=== PATIENT | female | born 1995 | race Two or more races ===

== ENCOUNTER 2018-12-08 19:10 | Emergency (ER) | payer SELFPAY ==
[~2018-12-08] VITALS: Ht 180.3 cm; Wt 74.8 kg
[2018-12-08 19:14] VITALS: BP 130/80
--- NOTE | 2018-12-08 19:14 | NUR ---
brought in by lapd and rescue with complaints patient is suicidal wants to . patinet has abration on neck ,right shoulder . lapd at bedside pateint is awake alert oriented .
--- NOTE | 2018-12-08 19:14 | NUR ---
ED Nurse Note: sitter at bedside
--- NOTE | 2018-12-08 19:20 | NUR ---
Pt Belongings in psych locker #2
[2018-12-08 20:31] LABS: ANION GAP 11 mmol/L (5-15); BLOOD UREA NITROGEN 9 mg/dL (7-18); CALCIUM 9.2 MG/DL (8.5-10.1); CARBON DIOXIDE 27 MMOL/L (21-32); CHLORIDE 106 MMOL/L (98-107); CREATININE 0.7 MG/DL (0.55-1.30); POTASSIUM 3.7 MMOL/L (3.5-5.1); SODIUM 144 MMOL/L (136-145)
[2018-12-08 20:33] LABS: BASOPHILS % (AUTO) 1.5 % (0.0-2.0); EOSINOPHILS % (AUTO) 2.9 % (0.0-3.0); HEMOGLOBIN 13.9 G/DL (12.0-16.0); LYMPHOCYTES % (AUTO) 34.4 % (20.0-45.0); MEAN CORPUSCULAR VOLUME 86 FL (80-99); MONOCYTES % (AUTO) 7.6 % (1.0-10.0); NEUTROPHILS % (AUTO) 53.5 % (45.0-75.0); PLATELET COUNT 227 K/UL (150-450); RED BLOOD COUNT 4.91 M/UL (4.20-5.40); RED CELL DISTRIBUTION WIDTH 13.1 % (11.6-14.8); WHITE BLOOD COUNT 6.5 K/UL (4.8-10.8)
--- NOTE | 2018-12-08 20:34 | Emergency Room Report ---
History of Present Illness General Chief Complaint: Behavioral Complaint Source: Patient (Isac Isidro) Present Illness HPI 23-year-old female with history of bipolar disorder currently not taking her medication here brought in by paramedics and [employer] due to attempting to cut her neck as well as her left shoulder and her abdomen. Multiple abrasions on the neck and left shoulder as well as the abdomen are noted. Patient reports that she has been severely depressed and has been having lack of sleep for the past few days. 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 Patient reports that she has tried to hurt herself in the past and has been under the care of the psychiatric facilities however has not seek any psychiatric attention in the few months. Patient reports that she has no one to live with as well as no family. Denies SI and HI today however says that this is just the thought that came to her head and she needs to go home to go back to work. Patient used a knife to cut herself. Patient has been having many impulsive moves in the past few days and reports that she has had 3-4 nights of no sleeping. Patient denies any visual or auditory hallucinations. Denies chest pain, shortness of breath, palpitation , abdominal pain, nausea vomiting, headache, dizziness and loss of consciousness. Patient reports that her menses are irregular. (Isac Isidro) Allergies: Coded Allergies: No Known Allergies (Unverified , 12/08/18) Patient History Past Medical History: see triage record Past Surgical History: unable to obtain Family History: none Now: No Immunizations: UTD Reviewed Nursing Documentation: PMH: Agreed; PSxH: Agreed (Isac Isidro) Nursing Documentation-PMH Hx Asthma: Yes (Isac Isidro) Review of Systems All Other Systems: negative except mentioned in HPI (Isac Isidro) Physical Exam Vital Signs Date Time Temp Pulse Resp B/P (MAP) Pulse Ox O2 Delivery O2 Flow Rate FiO2 12/08/18 19:14 98.4 130/80 (97) Room Air Sp02 EP Interpretation: reviewed, normal General Appearance: alert/responsive, GCS 15, non-toxic Head: normocephalic, atraumatic Eyes: normal eye exam, PERRL, EOMI, lids + conjunctiva normal, discs & fundi normal ENT: normal ENT inspection, TMs + canals normal, hearing intact Neck: normal inspection, supple/symm/no masses, thyroid normal Respiratory: normal inspection, effort normal, no rhonchi, no wheezing, no retractions Cardiovascular: normal inspection, regular rate, rhythm, no murmur, gallop, rub , no edema Gastrointestinal: normal inspection, non-tender, no mass, non-distended Musculoskeletal: normal inspection, gait & station normal, digits & nails normal Neurologic: normal inspection, CN II-XII intact, oriented x3 Psychiatric: memory normal, no delusions, other Skin: other - Multiple abrasions and cuts and bilateral neck, left shoulder, abdomen no sign of strangulation or deep cuts noted Lymphatic: normal inspection, normal cervical nodes, normal axillary nodes - Suicidal ideation and plan (Isac Isidro) Medical Decision Making PA Attestation All diagnoses and treatment plans were reviewed and discussed with my supervising physician Dr. Gillespie (Isac Isidro) Diagnostic Impression: Primary Impression: Suicidal behavior with attempted self-injury Additional Impression: UTI (urinary tract infection) ER Course 23-year-old female with history of bipolar disorder currently not taking her medication here brought in by paramedics and [employer] due to attempting to cut her neck as well as her left shoulder and her abdomen. Multiple abrasions on the neck and left shoulder as well as the abdomen are noted. Patient reports that she has been severely depressed and has been having lack of sleep for the past few days. 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 Patient reports that she has tried to hurt herself in the past and has been under the care of the psychiatric facilities however has not seek any psychiatric attention in the few months. Patient reports that she has no one to live with as well as no family. Denies SI and HI today however says that this is just the thought that came to her head and she needs to go home to go back to work. Patient used a knife to cut herself. Patient has been having many impulsive moves in the past few days and reports that she has had 3-4 nights of no sleeping. Patient denies any visual or auditory hallucinations. Denies chest pain, shortness of breath, palpitation , abdominal pain, nausea vomiting, headache, dizziness and loss of consciousness. Patient reports that her menses are irregular. Ddx considered but are not limited to: generalized anxiety disorder, panic attack, depression with psycotic featurs, bipolar disorder, drug overdose , suicidal behavior with attempted self injury Vital signs: are WNL, pt. is afebrile H&PE are most consistent with: Suicidal behavior with attempted self injury ORDERS: Psychiatric set, neck CT soft tissue ED INTERVENTIONS: NS bolus Patient to be transferred to psychiatric facility for further assessment patient is a 5150 (Isac Isidro) ER Course Please see above report. Patient signed out to Dr. Cortes. (Alex Gillespie MD) Labs Test 12/08/18 20:00 12/09/18 00:50 12/09/18 03:40 White Blood Count 6.5 K/UL (4.8-10.8) Red Blood Count 4.91 M/UL (4.20-5.40) Hemoglobin 13.9 G/DL (12.0-16.0) Hematocrit 42.0 % (37.0-47.0) Mean Corpuscular Volume 86 FL (80-99) Mean Corpuscular Hemoglobin 28.3 PG (27.0-31.0) Mean Corpuscular Hemoglobin Concent 33.0 G/DL (32.0-36.0) Red Cell Distribution Width 13.1 % (11.6-14.8) Platelet Count 227 K/UL (150-450) Mean Platelet Volume 8.1 FL (6.5-10.1) Neutrophils (%) (Auto) 53.5 % (45.0-75.0) Lymphocytes (%) (Auto) 34.4 % (20.0-45.0) Monocytes (%) (Auto) 7.6 % (1.0-10.0) Eosinophils (%) (Auto) 2.9 % (0.0-3.0) Basophils (%) (Auto) 1.5 % (0.0-2.0) Prothrombin Time 10.7 SEC (9.30-11.50) Prothromb Time International Ratio 1.0 (0.9-1.1) Activated Partial Thromboplast Time 26 SEC (23-33) Sodium Level 144 MMOL/L (136-145) Potassium Level 3.7 MMOL/L (3.5-5.1) Chloride Level 106 MMOL/L (98-107) Carbon Dioxide Level 27 MMOL/L (21-32) Anion Gap 11 mmol/L (5-15) Blood Urea Nitrogen 9 mg/dL (7-18) Creatinine 0.7 MG/DL (0.55-1.30) Estimat Glomerular Filtration Rate > 60 mL/min (>60) Glucose Level 102 MG/DL (74-106) Calcium Level 9.2 MG/DL (8.5-10.1) Total Bilirubin 0.6 MG/DL (0.2-1.0) Aspartate Amino Transf (AST/SGOT) 27 U/L (15-37) Alanine Aminotransferase (ALT/SGPT) 23 U/L (12-78) Alkaline Phosphatase 106 U/L (46-116) Total Creatine Kinase 251 U/L (26-308) Troponin I 0.000 ng/mL (0.000-0.056) Total Protein 8.3 G/DL (6.4-8.2) Albumin 4.7 G/DL (3.4-5.0) Globulin 3.6 g/dL Albumin/Globulin Ratio 1.3 (1.0-2.7) Salicylates Level 0.3 ug/mL (2.8-20) Acetaminophen Level < 2 MCG/ML (10-30) Urine Color Yellow Urine Appearance Slightly cloudy Urine pH 6.5 (4.5-8.0) Urine Specific [place] 1.010 (1.005-1.035) Urine Protein Negative (NEGATIVE) Urine Glucose (UA) Negative (NEGATIVE) Urine Ketones Negative (NEGATIVE) Urine Blood Negative (NEGATIVE) Urine Nitrite Positive (NEGATIVE) Urine Bilirubin Negative (NEGATIVE) Urine Urobilinogen Normal MG/DL (0.0-1.0) Urine Leukocyte Esterase 2+ (NEGATIVE) Urine RBC 0-2 /HPF (0 - 2) Urine WBC 10-15 /HPF (0 - 2) Urine Squamous Epithelial Cells Moderate /LPF (NONE/OCC) Urine Bacteria Many /HPF (NONE) Urine HCG, Qualitative Negative (NEGATIVE) Urine Opiates Screen Negative (NEGATIVE) Urine Barbiturates Screen Negative (NEGATIVE) Phencyclidine (PCP) Screen Negative (NEGATIVE) Urine Amphetamines Screen Negative (NEGATIVE) Urine Benzodiazepines Screen Negative (NEGATIVE) Urine Cocaine Screen Negative (NEGATIVE) Urine Marijuana (THC) Screen Positive (NEGATIVE) Serum Alcohol 9 mg/dL (Mello Cortes MD) EKG Diagnostic Results Rate: normal Rhythm: NSR ST Segments: no acute changes (Isac Isidro) Chest X-Ray Diagnostic Results Chest X-Ray Diagnostic Results : Chest X-Ray Ordered: Yes # of Views/Limited/Complete: 1 View Indication: Other EP Interpretation: Yes Interpretation: no consolidation, no effusion, no pneumothorax Impression: No acute disease Electronically Signed by: isac jauregui PA-C (Isac Isidro) Chest X-Ray Diagnostic Results : Electronically Signed by: P A documentation of Xray reviewed by me and is accurate, Alex Gillespie MD (Alex Gillespie MD) Other X-Ray Diagnostic Results Other X-Ray Diagnostic Results : X-Ray ordered: neck soft tissue # of Views/Limited Vs Complete: 2 View Indication: Pain EP Interpretation: Yes Interpretation: no dislocation, no soft tissue swelling, no fractures, other - no FB Impression: No acute disease Electronically Signed by: isac jauregui PA-C (Isac Isidro) Other X-Ray Diagnostic Results : Electronically Signed by: P A documentation of Xray reviewed by me and is accurate, Alex Gillespie MD (Alex Gillespie MD) Last Vital Signs Date Time Temp Pulse Resp B/P (MAP) Pulse Ox O2 Delivery O2 Flow Rate FiO2 12/08/18 19:14 98.4 130/80 (97) Room Air (Isac Isidro) Status: improved (Mello Cortes MD) Disposition: XFER TO PSYCH HOSP/UNIT Condition: Stable Referrals: NOT CHOSEN IPA/MD,REFERRING (PCP) Patient Instructions: Self-Destructive Behavior Isac Isidro Dec 08, 2018 20:34 Alex Gillespie MD Dec 09, 2018 02:38 Mello Cortes MD Dec 09, 2018 06:28
[2018-12-08 20:35] LABS: ALANINE AMINOTRANSFERASE 23 U/L (12-78); ALBUMIN 4.7 G/DL (3.4-5.0); ALBUMIN/GLOBULIN RATIO 1.3 (1.0-2.7); ALKALINE PHOSPHATASE 106 U/L (46-116); ASPARTATE AMINO TRANSFERASE 27 U/L (15-37); BILIRUBIN,TOTAL 0.6 MG/DL (0.2-1.0); CREATINE KINASE 251 U/L (26-308)
[2018-12-08 21:00] VITALS: BP 128/78
[2018-12-08 23:00] VITALS: BP 132/82
--- NOTE | 2018-12-08 23:00 | NUR ---
ED Nurse Note: Pt resting comfortably, offered toiletting and food. Pt is calm and cooperative, will continue to monitor, sitter at bedside
[2018-12-09] VITALS (7 sets, daily range): BP systolic 124–138; BP diastolic 70–78
--- NOTE | 2018-12-09 01:00 | NUR ---
ED Nurse Note: Pt resting with eyes closed, non-labored breathing. No further orders at this time. Will continue to monitor
[2018-12-09 01:10] LABS: APPEARANCE,URINE SLIGHTLY CLOUDY; BILIRUBIN, URINE NEGATIVE (NEGATIVE); GLUCOSE, URINE (UA) NEGATIVE (NEGATIVE); KETONES,URINE NEGATIVE (NEGATIVE); NITRITE,URINE POSITIVE (NEGATIVE); PH,URINE 6.5 (4.5-8.0); PROTEIN,URINE NEGATIVE (NEGATIVE); UROBILINOGEN,URINE NORMAL MG/DL (0.0-1.0)
[2018-12-09 01:42] LABS: COLOR,URINE YELLOW; LEUKOCYTE ESTERASE ,URINE 2+ (NEGATIVE)
--- NOTE | 2018-12-09 03:30 | NUR ---
ED Nurse Note: Pt resting with eyes closed, non-labored breathing. No further orders at this time. Will continue to monitor
--- NOTE | 2018-12-09 05:30 | NUR ---
ED Nurse Note: Pt resting with eyes closed, non-labored breathing. Pt changed positions to left side, no signs of distress. Will continue to monitor, sitter at bedside
[2018-12-09] MEDS ORDERED: Cephalexin 500mg cap ORAL ONE (06:30)
--- NOTE | 2018-12-09 07:11 | NUR ---
HAND-OFF: Report given to JOHANNA Stanton.
--- NOTE | 2018-12-09 07:58 | NUR ---
ED Nurse Note: PT STILL SLEEPING AND BREAKFAST TRAY LETF AT THE BED SIDE. LANCEE SITTER AT THE BED SIDE.
[2018-12-09] MEDS ORDERED: NKM (08:24)
--- NOTE | 2018-12-09 09:30 | NUR ---
ED Nurse Note: LANCEE AT THE BED SIDE SITTER.
--- NOTE | 2018-12-09 10:15 | NUR ---
ED Nurse Note: PT'S FAMILY MEMBER AT THE BED SIDE VISITING HER. CHARAN SITTER STILL AT THE BED SIDE.
--- NOTE | 2018-12-09 11:08 | Diagnostic Imaging Report ---
Indication: Chest pain Technique: One view of the chest Comparison: none Findings: Lungs and pleural spaces are clear. Heart size is normal Impression: No acute process
--- NOTE | 2018-12-09 11:17 | Diagnostic Imaging Report ---
Indication: Pain, abrasion Technique: 2 views of the neck with soft tissue technique Comparison: none Findings: No prevertebral soft tissue swelling. Normal size epiglottis. No hypopharyngeal distention or glottic narrowing. The bones are unremarkable. No radiopaque foreign body Impression: Negative
--- NOTE | 2018-12-09 13:10 | Cardiology Report ---
APPROVED REPORT EKG Measurement Heart [id number] [id number] Normal sinus rhythm with sinus arrhythmia Septal infarct, age undetermined Abnormal ECG
--- NOTE | 2018-12-09 14:49 | NUR ---
ED Nurse Note: REPORT GIVEN TO STEVE SPENCER OF [employer].
--- NOTE | 2018-12-09 14:55 | NUR ---
ED Nurse Note: PT TRANSFERRED TO [facility] WITH BELONGINGS SENT. VSS. REPORT GIVEN TO [facility] STAFF.
== END 2018-12-09 14:55 ==
LOC: EDBD 19:10 → EMR 20:01
DX: S10.91XA Abrasion of unspecified part of neck, initial encounter (principal); S40.212A Abrasion of left shoulder, initial encounter; S30.811A Abrasion of abdominal wall, initial encounter; X78.1XXA Intentional self-harm by knife, initial encounter; Y92.9 Unspecified place or not applicable; N39.0 Urinary tract infection, site not specified
CPT/HCPCS: 36415; 70360; 71045; 80053; 80307; 81003; 81025; 82550; 84484; 85025; 85610; 85730; 86850; 86900; 86901; 87086; 87181; 93005; 99285; G0480; J7040; 80329